=== PATIENT | male | born 2000 | race African-American/Black ===

== ENCOUNTER 2022-06-02 16:10 | Day surgery (SDC) | payer SELFPAY ==
[2022-06-02] MEDS ORDERED: LACTATED RINGERS 1,000 ML ONE (16:16)
[2022-06-02] MEDS: LACTATED RINGERS 1,000 ML IV SCH (16:20)
[2022-06-02 16:25] VITALS: BP 157/89
[2022-06-02] MEDS ORDERED: VERSED ONE (16:33)
[2022-06-02] MEDS ORDERED: XYLOCAINE 2% 5ML VIAL ONE (16:33)
[2022-06-02] MEDS ORDERED: TORADOL ONE (16:35)
[2022-06-02] MEDS ORDERED: DECADRON ONE (16:35)
[2022-06-02] MEDS ORDERED: ANCEF ONE (16:47)
[2022-06-02] MEDS ORDERED: NS 100ML 100 ML IV ONE (16:56)
[2022-06-02 16:58] LABS: BASOPHIL % 0.4 % (0.0-0.2); EOSINOPHIL % 0.3 % (0.0-5.0); LYMPHOCYTES # 1.17 10^3/uL1 (1.2-5.2); LYMPHOCYTES % 16.5 % (24.0-44.0); MEAN CORP HGB 31.3 pg (26-34); MONOCYTES # 0.9 10^3/uL (0.0-0.4); MONOCYTES % 13.2 % (5.0-12.0); NEUTROPHIL # 4.9 10^3/uL (1.8-8.0); NEUTROPHILS % 69.5 % (41.0-85.0); RED CELL DISTRIBUTION WIDTH 11.9 % (11.5-14.5)
[2022-06-02 17:38] VITALS: BP 167/101
--- NOTE | 2022-06-02 20:38 | OPH ---
DATE OF SURGERY: 06/02/2022 DICTATOR NAME: Martin Lewis MD PREOPERATIVE DIAGNOSIS: Closed dislocations of the third and fourth metacarpal bases. POSTOPERATIVE DIAGNOSIS: Closed dislocations of the third and fourth metacarpal bases. OPERATIVE PROCEDURE: Closed reduction, right third and fourth metacarpal bases. SURGEON: Martin Lewis MD. ANESTHESIA: [place] block. TOURNIQUET TIME: 20 minutes. BLOOD LOSS: None. DESCRIPTION OF INDICATIONS: The patient is a 21-year-old male who struck a [] yesterday injuring the right hand. He was initially seen in [] and x-rays revealed a dislocation of the third and fourth metacarpal bases. His neurovascular exam was normal. He had swelling dorsally about the hand and decreased range of motion about the finger secondary to pain. He had no open wounds. There did not appear to be any fractures. The patient was taken to the operating room for closed reduction of the right third and fourth metacarpal bases. DESCRIPTION OF PROCEDURE: The patient was placed in the operating table in the supine position. A [place] block anesthetic was induced by the anesthesia department without difficulty. The patient had the finger traps applied with approximately 15 pounds of traction. The hand was gently manipulated and the metacarpals easily reduced. They were stable once they were completely reduced. AP and lateral C-arm view showed satisfactory reduction of the third and fourth metacarpal bases without any fractures or subluxation. The patient was placed in a padded volar splint with his fingers in full extension. Tourniquet was released after 20 minutes. The post-reduction x-rays were taken and he was sent to recovery in stable condition. Martin Lewis MD DR: STEPHANIE/STEVE/MALGORZATA/YADIEL TID: [id number] RECEIPT: [id number]
--- NOTE | 2022-06-02 23:30 | DIREP ---
PROCEDURE:XRAY HAND MIN 3 VW-RT COMPARISON:None. INDICATIONS:POST REDUCTION FINDINGS: BONES:Fine bony detail is obscured by cast. No pre reduction films available. No acute bony abnormality noted. JOINTS:Normal. SOFT TISSUES:Mild dorsal soft tissue swelling. OTHER:No additional findings. CONCLUSION:Dorsal soft tissue swelling without acute bony abnormality noted. Dictated by: Cortez Everett M.D. on 06/02/2022 at 11:28 PM
== END 2022-06-02 18:00 | disposition home or self-care (01) ==
LOC: SURG 16:10
PROVIDERS: ATTEND Orthopaedic Surgery
DX: S63.064A Dislocation of metacarpal (bone), proximal end of right hand, initial encounter (principal); K58.9 Irritable bowel syndrome, unspecified; X58.XXXA Exposure to other specified factors, initial encounter; Z79.2 Long term (current) use of antibiotics; Y93.89 Activity, other specified; Y92.89 Other specified places as the place of occurrence of the external cause; Y99.8 Other external cause status
CPT/HCPCS: 64999; 26605 ×2; 73130; 80053; 85025; 36415; J7120; J1100; J2001; J2250; J1885; 76000